=== PATIENT | female | born 1965 | race Caucasian/White ===

== ENCOUNTER 2018-10-03 19:09 | Emergency (ER) | payer BC ==
[~2018-10-03] VITALS: Ht 165.1 cm; Wt 56.7 kg
[2018-10-03] MEDS ORDERED: LIDOCAINE /MPF 1% VIAL 5 ML VIAL ONE (19:28)
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
[2018-10-03] MEDS ORDERED: TDAP [DIPH/PERTUSSIS/TET] 0.5 ML VIAL IM ONE ×2 (20:00→20:04)
[2018-10-03] MEDS ORDERED: LIDOCAINE 1% INJ 50 ML MDV IJ ONE (20:00)
--- NOTE | 2018-10-03 20:40 | NUR ---
Patient discharged to home in stable condition. Written and verbal after care instructions given. Patient verbalizes understanding of instruction. Pt ambulatory with a steady gait
[2018-10-03 20:58] VITALS: BP 123/75
== END 2018-10-03 20:58 | disposition home or self-care (01) ==
LOC: ER 19:12
DX: S61.210A Laceration without foreign body of right index finger without damage to nail, initial encounter (principal); F41.9 Anxiety disorder, unspecified; E03.9 Hypothyroidism, unspecified; Z60.2 Problems related to living alone; W26.0XXA Contact with knife, initial encounter; Y93.89 Activity, other specified; Y92.89 Other specified places as the place of occurrence of the external cause; Y99.8 Other external cause status
CPT/HCPCS: 12001; 73140; 90471; 90715; 99283; A6403 ×2; J3490

== ENCOUNTER 2018-10-15 15:52 | Emergency (ER) | payer BC ==
[~2018-10-15] VITALS: Ht 160 cm; Wt 59.9 kg
[2018-10-15 16:20] VITALS: BP 114/78
== END 2018-10-15 16:33 | disposition home or self-care (01) ==
LOC: ER 15:53
DX: S61.210D Laceration without foreign body of right index finger without damage to nail, subsequent encounter (principal); F41.9 Anxiety disorder, unspecified; E03.9 Hypothyroidism, unspecified; Z88.0 Allergy status to penicillin; Z88.2 Allergy status to sulfonamides; Z60.2 Problems related to living alone; W26.0XXD Contact with knife, subsequent encounter